=== PATIENT | female | born 1990 | race Caucasian/White ===

== ENCOUNTER 2016-07-15 13:31 | Emergency (ER) | payer OTHER ==
[~2016-07-15 13:31] MED LIST: ALBUTEROL0.09 MG/A2 IH; AMBIEN10 MG PO; ANAPROX DS550 MG PO; BACTRIM DS 8001 TA1 PO; BACTRIM DS 8001 TAB PO; BENTYL10 MG PO; BENTYL20 MG PO; CELEXA10 MG; CIPRO500 MG PO; CIPROFLOXACIN500 MG PO; CLINDAMYCIN HC300 MG PO; CORDROL20 MG PO; CYCLOBENZAPRINE5 M3 PO; DEPO MEDRO40 MG/1 ML IM; DIFLUCAN150 MG PO; FIORICET 325 MG1 TAB PO; FLAGYL500 MG PO; FLEXERIL10 MG PO; FLEXERIL5 MG PO; HYDROCODONE BIT1 T11 PO; KEFLEX500 MG PO; MACROBID100 M1 PO; MIRALAX POWDER17 G1 PO; MIRALAX17 GM/DOSE PO; MONISTAT 72% VG; MOTRIN800 MG PO; Motrin,Rufen800 MG PO; NAPROSYN500 MG PO; NKHM; NORCO 5-325 TA1 EACH PO; PEN-VEE K500 MG PO; PENICILLIN VK500 MG PO; PERCOCET 325 MG1 TA2 PO; PERCOCET 325 MG1 TA7 PO; PREDNISONE10 MG PO; PREDNISONE20 MG PO; PRENATAL1 TA1 PO; PRENATAL1 TA3 PO; PYRIDIUM100 MG PO; PYRIDIUM200 M1 PO; PYRIDIUM200 MG PO; Peridex 473 ML473 ML PO; ROBITUSSIN AC 110 ML PO; ROBITUSSIN-AC 160 ML PO; TESSALON PERLE100 M1 PO; TRAMADOL HCL50 MG PO; TRAMADOL50 MG PO; ULTRAM50 MG PO; VALIUM10 MG PO; VENTOLIN H0.09 MG/AC INH; VIBRA-TAB100 MG PO; VIBRAMYCIN100 MG PO; VICODIN 5/500 505 MG PO; VISTARIL25 M1 PO; VOLTAREN50 M1 PO; XANAX0.25 MG PO; ZANTAC150 MG PO; ZOFRAN ODT4 MG SL; ZOFRAN4 MG PO
[2016-07-15 14:29] LABS: BILIRUBIN NEGATIVE (NEGATIVE); BLOOD NEGATIVE (NEGATIVE); CLARITY CLOUDY (CLEAR); COLOR YELLOW (YELLOW); GLUCOSE NEGATIVE (NEGATIVE); KETONE NEGATIVE (NEGATIVE); LEUKO ESTERASE NEGATIVE (NEGATIVE); NITRITE NEGATIVE (NEGATIVE); PROTEIN TRACE (NEGATIVE); UROBILINOGEN 0.2 E.U./dl (0.2-1.0)
[2016-07-15] MEDS ORDERED: ZOFRAN ODT4 MG SL (14:29)
[2016-07-15 14:46] LABS: BACTERIA 2+; EPITHELIAL CELLS 51-100; URINE REFLEX COMMENT YES (NO)
[2016-07-30] MEDS ORDERED: PERCOCET 325 MG1 TA5 PO (08:31)
== END 2016-07-15 15:04 | disposition home or self-care (01) ==
LOC: ED 13:31
PROVIDERS: Nurse Practitioner Family
DX: N91.2 Amenorrhea, unspecified (principal); F17.200 Nicotine dependence, unspecified, uncomplicated; Z88.6 Allergy status to analgesic agent

== ENCOUNTER → 2016-07-30 | Day surgery (SDC) | payer OTHER ==
[2016-07-26 13:37] LABS: BASO # 0.1 10*3/uL (0.0-0.1); BASO % 0.6 % (0.0-1.0); EOS # 0.2 10*3/uL (0.0-0.4); EOS % 2.6 % (1.0-4.0); HEMATOCRIT 37.3 % (37.0-47.0); HEMOGLOBIN 12.2 g/dl (12.0-16.0); LYMPH # 2.6 10*3/uL (1.3-4.4); LYMPH % 31.4 % (27.0-41.0); MEAN CELL VOLUME 90.1 fl (81.0-99.0); MEAN CORPUSCULAR HGB 29.5 pg (27.0-31.0); MEAN CORPUSCULAR HGB CONC 32.7 g/dl (33.0-37.0); MEAN PLATELET VOLUME 8.4 fl (9.6-12.3); MONO # 0.5 10*3/uL (0.1-1.0); MONO % 5.8 % (3.0-9.0); NEUT # 4.8 10*3/uL (2.3-7.9); NEUT % 59.2 % (47.0-73.0); PLATELET COUNT AUTOMATED 407 10*3/uL (130-400); RED BLOOD COUNT 4.14 10*6/uL (4.10-5.10); RED CELL DISTRI WIDTH 13.7 % (0-14.5); WHITE BLOOD COUNT 8.1 10*3/uL (4.8-10.8)
[~2016-07-30] VITALS: Ht 149.8 cm; Wt 44.5 kg
[~2016-07-30] MED LIST changes: +BUSPIRONE HCL7.5 MG PO; +OMNICEF300 MG PO; +PERCOCET 325 MG1 TA5 PO
--- NOTE | ~2016-07-30 | WRIGHTHP ---
[place], [place] PATIENT HISTORY AND PHYSICAL EXAM NAME: SMITHA MUHAMMAD [facility] #: [id number] UNIT #: [id number] ROOM: DOCTOR: BJORN KELLER MD BIRTHDATE: [birth year] DOS: 08/02/2016 HISTORY OF PRESENT ILLNESS: This is a 26-year-old white female, 5, para 2, AB 3, whose last period was the very end of 06/2016, who was seen on 06/25/2016 with a very complex situation past medically. The patient had a diagnostic laparoscopy in 2014 and a thick anterior uterine body to anterior abdominal wall adhesion was noted from a previous section with non-closure of the peritoneum at the time of the section. The patient has also been diagnosed with interstitial cystitis, but has only had 2 rescues and has not returned for any additional therapy. We then performed a mini laparotomy to lyse this very thick adhesion in 04/2015 and the patient had done very well until 01/2016. She had some pain, but was overall doing reasonably well. She stated that she began having pain again in the left lower quadrant radiating to the midline and to the right lower quadrant in 04/2016. She has been using multiple therapies, especially tramadol and Percocet since August despite which she related above. Her last Emergency Room visit to [facility] was on 05/28/2016. At that time, her ultrasound was done that had been performed was normal. She was referred due to ovarian cysts and this pain. I showed her essentially the normal report from the ultrasound just so that, she would understand that what was said to her despite what was stated really was normal evaluation in May. We discussed his vague pain and the fact that I recommended that she complete her rescue series for IC and then all in all if all else fails, I could repeat the laparoscopy. I gave her some Uribel samples. We discussed the indications, potential complications, alternatives, and essential benefits of diagnostic laparoscopy again and she did state understanding and also desired to proceed with the laparoscopy. She discussed the narcotic prescription for this pain, but I advised her that since she had not treated her IC as indicated and because we did not know what the possible etiology of this pain was that I was not going to prescribe narcotics for this. The patient was not pleased with this, but did state understanding and she signed her consent, has been scheduled for this surgery. PAST HISTORY: Reveals a history of anxiety. The interstitial cystitis. There is intermittent pelvic pain. She has had wisdom teeth extraction, 2 C-sections in 2006 and 2010, the diagnostic laparoscopy, a mini laparotomy as I have described above. Again, 5 pregnancies, 2 living children and 3 miscarriages. She also has had stomach pains with a diagnosis of muscle spasms in 2010, stomach pain in 2011 and then more localized pelvic pain in 2014. SOCIAL HISTORY: She does smoke about a half pack per day, consumes alcohol, but prior history on a limited basis. MEDICATIONS: She uses Valium 10 mg up to 3 times a day for anxiety and Flexeril one tablet at bedtime for muscle spasms. ALLERGIES: ALLERGY TO TORADOL. She states it makes her heart race. REVIEW OF SYSTEMS: Other than what I mentioned is stable. FAMILY HISTORY: Really negative per the information provided to us in the [place], [place] PATIENT HISTORY AND PHYSICAL EXAM [facility]: [facility] [id number] UNIT #: [id number] ROOM: DOCTOR: BJORN KELLER MD BIRTHDATE: [birth year] office. PHYSICAL EXAMINATION: GENERAL: Reveals a pleasant, but somewhat depressed appearing white female, 4 feet 11, 98 pounds, BMI of 19.8 and she does appear like she is uncomfortable. HEENT: Stable. NECK: Stable. LUNGS: Stable. CARDIAC: Stable. BREAST: Stable. ABDOMEN: Nondistended. Bowel sounds are good and operative sites are all intact. There is no evidence of any hernia formation. Deep palpation does not really elicit any significant abdominal pain. There is no rebound. EXTREMITIES: Grossly intact. NEUROLOGIC: Grossly intact. GENITOURINARY: External genitalia, vagina, cervix normal. Most recent Pap was negative in 2014. Uterus itself is anteverted and anteflexed, somewhat tender on manipulation. The overall size is normal and the mobility is good. Adnexa were negative to palpation. RECTAL: Deferred. ASSESSMENT: The patient with interstitial cystitis that has not been properly treated and the patient is not been cooperative in this respect, chronic intermittent pelvic pain with a history previously of significant thick anterior uterine to abdominal wall adhesion that was lysed via minilaparotomy. Interceed was used and all steps were taken try to prevent recurrence of this now recurrent pelvic pain after a good response to lysis of this adhesion, but the etiology of the pain at present is uncertain. To that end, on 07/30/2016, the patient will undergo a diagnostic laparoscopy. BJORN KELLER MD CM:HISPHYS:PATIENT HISTORY AND PHYSICAL EXAMINATION [id number] BJORN KELLER MD 08/07/16 0718 interface
--- NOTE | ~2016-07-30 | O ---
[place], [place] OPERATIVE NOTE NAME: SMITHA MUHAMMAD [facility] #: [id number] UNIT #: [id number] ROOM: DOCTOR: BJORN KELLER MD BIRTHDATE: [birth year] DOS: 07/30/2016 PREOPERATIVE DIAGNOSES: Recurrent pelvic pain. POSTOPERATIVE DIAGNOSIS: Recurrent pelvic pain with the addition of recurrent thick anterior abdominal wall to uterine adhesion arising from the left cornual region of the uterus, this is chronic and not acute. PROCEDURE: The operation itself was a diagnostic laparoscopy. SURGEON: Bjorn Keller M.D. and Dr. Briceño. ANESTHETIC: General. ESTIMATED BLOOD LOSS: Minimal. REPLACEMENTS: IV fluids. COMPLICATIONS: There were no complications. CONDITION: The patient's condition to recovery stable. OPERATIVE SUMMARY: The patient was taken to the operating room in supine position, general anesthesia, endotracheal intubation, lithotomy position, prepped and draped in routine manner. Cervix was grasped with tenaculum and a cervical manipulator placed and a Fountain catheter was placed to straight drain. Infraumbilical and suprapubic incisions were made under direct visualization. Through the infraumbilical incision, a 5-mm trocar sleeve and laparoscope placed. Suprapubic trocar and sleeves were then placed well above the pubic bone and above her previous Pfannenstiel incisions. A probe was placed, and at this time, the anterior cul-de-sac and the posterior cul-de-sac were normal. The supporting structures were normal. The tubes and ovaries were normal with the left tube being somewhat prominent, but otherwise being normal with no evidence of any inflammation. The ovaries were upper limits of normal size, left being greater than right, but overall normal in their appearance. There was a thick recurrent anterior abdominal wall adhesion between the uterus and the abdominal wall arising near the left cornual region. The exam of the appendix, the upper abdomen, the ascending and descending colon, the bowel small and large in general were all completely within normal limits. The only abnormality really was this recurrent thick adhesion arising near the left cornual region of the uterus to the abdominal wall. This was rather far reaching and extensive, and it was not felt to be laparoscopically the best approach to dealing with this particularly since it was recurrent. Once this was completed, the survey and photos taken, the suprapubic trocar and sleeve and probe were removed and noting no excessive anterior abdominal wall bleeding. CO2 was allowed to escape followed by removal of the infraumbilical trocar, sleeve, and laparoscope. Each incision was closed with 3-0 Monocryl suture. Steri-Strips and dressings placed. Instrumentation was removed from the vagina and noting no excessive vaginal bleeding. We removed the Fountain catheter, which had revealed approximately 100 mL of clear urine. Once this was all completed, [place], [place] OPERATIVE NOTE NAME: SMITHA MUHAMMAD UNIT #: [id number] ROOM: DOCTOR: BJORN KELLER MD BIRTHDATE: [birth year] the patient was cleaned off, taken out of lithotomy position, awakened, extubated, and transferred to recovery in satisfactory condition. BJORN KELLER MD CM:OPRECORD:OPERATIVE NOTE [id number] BJORN KELLER MD 07/30/16 0858 interface
[2016-07-30 07:10] VITALS: BP 123/80
[2016-07-30 08:20] VITALS: BP 113/73
[2016-07-30 08:35] VITALS: BP 101/65
[2016-07-30 08:50] VITALS: BP 103/65
[2016-07-30 09:04] VITALS: BP 102/64
[2016-07-30 09:23] VITALS: BP 101/64
== END | disposition home or self-care (01) ==
LOC: SDC 07-26 01:34 → LAB 01:58 → SDC 01:58
PROVIDERS: Obstetrics & Gynecology
DX: R10.2 Pelvic and perineal pain (principal); N73.6 Female pelvic peritoneal adhesions (postinfective); F41.9 Anxiety disorder, unspecified; F17.210 Nicotine dependence, cigarettes, uncomplicated

== ENCOUNTER 2016-08-12 20:45 | Emergency (ER) | payer OTHER ==
[~2016-08-12] VITALS: Ht 149.8 cm; Wt 44.5 kg
[~2016-08-12 20:45] MED LIST changes: -BUSPIRONE HCL7.5 MG PO; -OMNICEF300 MG PO
[2016-08-12] MEDS ORDERED: BUSPIRONE HCL7.5 MG PO (20:53)
[2016-08-12 21:18] LABS: BILIRUBIN NEGATIVE (NEGATIVE); BLOOD 1+ (NEGATIVE); CLARITY SL CLOUDY (CLEAR); COLOR YELLOW (YELLOW); GLUCOSE NEGATIVE (NEGATIVE); KETONE TRACE (NEGATIVE); LEUKO ESTERASE 2+ (NEGATIVE); NITRITE NEGATIVE (NEGATIVE); PROTEIN NEGATIVE (NEGATIVE); SPECIFIC GRAVITY >= 1.030 (1.005-1.030); UROBILINOGEN 0.2 E.U./dl (0.2-1.0)
[2016-08-12] MEDS ORDERED: PRENATAL1 TA3 PO (21:18)
[2016-08-12 21:33] LABS: BACTERIA 1+; EPITHELIAL CELLS TNTC; URINE REFLEX COMMENT YES (NO); WBC TNTC wbc/hpf (0-5)
[2016-08-12] MEDS ORDERED: OMNICEF300 MG PO (21:35)
== END 2016-08-12 21:42 | disposition home or self-care (01) ==
LOC: ED 20:45
PROVIDERS: Physician Assistant
DX: T23.131A Burn of first degree of multiple right fingers (nail), not including thumb, initial encounter (principal); N30.01 Acute cystitis with hematuria; F17.200 Nicotine dependence, unspecified, uncomplicated; Z98.890 Other specified postprocedural states; Z32.01 Encounter for pregnancy test, result positive; Z88.6 Allergy status to analgesic agent; X08.8XXA Exposure to other specified smoke, fire and flames, initial encounter; Y93.89 Activity, other specified; Y92.89 Other specified places as the place of occurrence of the external cause; Y99.9 Unspecified external cause status

== ENCOUNTER → 2016-12-04 | Outpatient (CLI) | payer OTHER ==
[~2016-12-04] MED LIST changes: +BUSPIRONE HCL7.5 MG PO; +OMNICEF300 MG PO
== END | disposition home or self-care (01) ==
LOC: US 17:00
DX: Z34.81 Encounter for supervision of other normal pregnancy, first trimester (principal); K21.0 Gastro-esophageal reflux disease with esophagitis; R11.0 Nausea

== ENCOUNTER → 2017-02-19 | Outpatient (CLI) | payer OTHER | LOC: LAB 07:55 | DX: R73.09 Other abnormal glucose (principal) ==

== ENCOUNTER 2017-02-24 13:44 | Emergency (ER) | payer OTHER ==
[~2017-02-24] VITALS: Ht 149.8 cm; Wt 54.4 kg
[2017-02-24 14:22] LABS: HEMATOCRIT 31.6 % (37.0-47.0); HEMOGLOBIN 10.7 g/dl (12.0-16.0); MEAN CELL VOLUME 91.9 fl (81.0-99.0); MEAN CORPUSCULAR HGB 31.1 pg (27.0-31.0); MEAN CORPUSCULAR HGB CONC 33.9 g/dl (33.0-37.0); MEAN PLATELET VOLUME 8.8 fl (9.6-12.3); PLATELET COUNT AUTOMATED 308 10*3/uL (130-400); RED BLOOD COUNT 3.44 10*6/uL (4.10-5.10); RED CELL DISTRI WIDTH 12.3 % (0-14.5); WHITE BLOOD COUNT 17.9 10*3/uL (4.8-10.8)
[2017-02-24 14:36] LABS: BILIRUBIN NEGATIVE (NEGATIVE); BLOOD 3+ (NEGATIVE); CLARITY SL CLOUDY (CLEAR); COLOR YELLOW (YELLOW); GLUCOSE NEGATIVE (NEGATIVE); KETONE NEGATIVE (NEGATIVE); LEUKO ESTERASE NEGATIVE (NEGATIVE); NITRITE NEGATIVE (NEGATIVE); PROTEIN NEGATIVE (NEGATIVE); UROBILINOGEN 0.2 E.U./dl (0.2-1.0)
[2017-02-24 14:39] LABS: ALBUMIN 3.1 gm/dl (3.1-4.5); ALKALINE PHOSPHATASE 120 U/L (45-117); BILIRUBIN, TOTAL 0.3 mg/dl (0.2-1.0); BUN 4 mg/dl (7-24); CARBON DIOXIDE 23 mmol/L (21-32); CHLORIDE 104 mmol/L (98-107); EST GLOM FILT AFRICAN AMERICAN > 60 ml/min; GLUCOSE 79 mg/dL (65-99); POTASSIUM 3.3 mmol/L (3.5-5.1); SGOT/AST 13 IU/L (3-35); SGPT/ALT 12 U/L (12-78); SODIUM 138 mmol/L (136-145); TOTAL PROTEIN 6.8 gm/dL (6.4-8.2)
[2017-02-24 14:41] LABS: EOSINOPHIL # 0.4 10*3/uL (0-0.4); EOSINOPHILS 2 % (1-4); LYMPHOCYTE # 2.1 10*3/uL (1.3-4.4); METAMYELOCYTES 2 % (0-0); MONOCYTE # 0.7 10*3/uL (0.1-1.0); MYELOCYTES 1 % (0-0); NEUTROPHIL # 14.1 10*3/uL (2.3-7.9); NEUTROPHILS 79 % (47-73); TOTAL CELLS COUNTED 100 #CELLS
[2017-02-24 14:42] LABS: PLATELET SUFFICIENCY NORMAL (NORMAL)
[2017-02-24 15:00] LABS: BACTERIA TRACE; EPITHELIAL CELLS TNTC; URINE REFLEX COMMENT YES (NO)
== END 2017-02-24 15:19 | disposition home or self-care (01) ==
LOC: ED 13:44
PROVIDERS: Student in an Organized Health Care Education/Training Program
DX: O26.893 Other specified pregnancy related conditions, third trimester (principal); O99.333 Smoking (tobacco) complicating pregnancy, third trimester; M54.5 Low back pain; N89.8 Other specified noninflammatory disorders of vagina; F17.200 Nicotine dependence, unspecified, uncomplicated; Z88.6 Allergy status to analgesic agent; Z3A.31 31 weeks gestation of pregnancy

== ENCOUNTER 2017-07-22 13:29 | Emergency (ER) | payer OTHER ==
[~2017-07-22] VITALS: Ht 149.8 cm; Wt 45.4 kg
[2017-07-22 14:52] LABS: BASO % 0.5 % (0.0-1.0); EOS # 0.2 10*3/uL (0.0-0.4); EOS % 2.9 % (1.0-4.0); HEMOGLOBIN 13.2 g/dl (12.0-16.0); LYMPH # 2.3 10*3/uL (1.3-4.4); MEAN CELL VOLUME 86.7 fl (81.0-99.0); MEAN CORPUSCULAR HGB 27.9 pg (27.0-31.0); MEAN CORPUSCULAR HGB CONC 32.2 g/dl (33.0-37.0); MEAN PLATELET VOLUME 8.5 fl (9.6-12.3); MONO # 0.5 10*3/uL (0.1-1.0); MONO % 5.8 % (3.0-9.0); NEUT # 4.7 10*3/uL (2.3-7.9); NEUT % 60.4 % (47.0-73.0); PLATELET COUNT AUTOMATED 423 10*3/uL (130-400); RED BLOOD COUNT 4.73 10*6/uL (4.10-5.10); RED CELL DISTRI WIDTH 14.9 % (0-14.5); WHITE BLOOD COUNT 7.8 10*3/uL (4.8-10.8)
[2017-07-22 14:56] LABS: BILIRUBIN NEGATIVE (NEGATIVE); BLOOD 3+ (NEGATIVE); CLARITY CLOUDY (CLEAR); COLOR YELLOW (YELLOW); GLUCOSE NEGATIVE (NEGATIVE); KETONE NEGATIVE (NEGATIVE); LEUKO ESTERASE 1+ (NEGATIVE); NITRITE NEGATIVE (NEGATIVE); PH 6.5 (5.0-9.0); SPECIFIC GRAVITY 1.015 (1.005-1.030); UROBILINOGEN 0.2 E.U./dl (0.2-1.0)
[2017-07-22 15:03] LABS: ALBUMIN 3.6 gm/dl (3.1-4.5); ALKALINE PHOSPHATASE 119 U/L (45-117); BUN 7 mg/dl (7-24); CHLORIDE 108 mmol/L (98-107); CREATININE 0.65 mg/dL (0.55-1.02); LIPASE 136 U/L (73-393); POTASSIUM 3.9 mmol/L (3.5-5.1); SGOT/AST 13 IU/L (3-35); SGPT/ALT 27 U/L (12-78); SODIUM 141 mmol/L (136-145); TOTAL PROTEIN 7.3 gm/dL (6.4-8.2)
[2017-07-22 15:12] LABS: RBC TNTC rbc/hpf (0-2)
[2017-07-22] MEDS ORDERED: ZOFRAN4 MG PO (15:26)
[2017-07-22] MEDS ORDERED: PYRIDIUM200 M1 PO (15:26)
[2017-07-22] MEDS ORDERED: SEPTDS PO (15:26)
== END 2017-07-22 15:30 | disposition home or self-care (01) ==
LOC: ED 13:29
PROVIDERS: Nurse Practitioner Family
DX: N39.0 Urinary tract infection, site not specified (principal); F17.200 Nicotine dependence, unspecified, uncomplicated; G89.29 Other chronic pain; Z88.6 Allergy status to analgesic agent; Z79.899 Other long term (current) drug therapy

== ENCOUNTER 2017-08-25 17:31 | Emergency (ER) | payer SELFPAY ==
[~2017-08-25] VITALS: Wt 52.6 kg
[~2017-08-25 17:31] MED LIST changes: +SEPTDS PO
[2017-08-25] MEDS ORDERED: PRAZOSIN HCL1 MG PO (17:39)
[2017-08-25] MEDS ORDERED: SERTRALINE HYD100 MG PO (17:40)
[2017-08-25] MEDS ORDERED: DOXEPIN HCL25 MG PO (17:40)
[2017-08-25] MEDS ORDERED: DIAZEPAM5 MG PO (17:40)
[2017-08-25] MEDS ORDERED: ZITHROMAX250 MG PO (18:46)
[2017-08-25] MEDS ORDERED: PREDNISONE10 MG PO (20:09)
== END 2017-08-25 20:20 | disposition home or self-care (01) ==
LOC: ED 17:31
DX: L24.9 Irritant contact dermatitis, unspecified cause (principal); H66.90 Otitis media, unspecified, unspecified ear; J02.9 Acute pharyngitis, unspecified; F17.200 Nicotine dependence, unspecified, uncomplicated; Z88.6 Allergy status to analgesic agent

== ENCOUNTER 2018-04-05 14:23 | Emergency (ER) | payer OTHER ==
[~2018-04-05] VITALS: Ht 149.8 cm; Wt 50.3 kg
[~2018-04-05 14:23] MED LIST changes: +DIAZEPAM5 MG PO; +DOXEPIN HCL25 MG PO; +PRAZOSIN HCL1 MG PO; +SERTRALINE HYD100 MG PO; +ZITHROMAX250 MG PO
[2018-04-05] MEDS ORDERED: ROBITUSSIN DM 105 ML PO (17:22)
[2018-04-05] MEDS ORDERED: AMOXICILLIN500 M2 PO (17:22)
[2018-04-05] MEDS ORDERED: PREDNISONE20 M1 PO (17:22)
[2018-04-05] MEDS ORDERED: PROAIR HFA8.5 GM INH (17:22)
== END 2018-04-05 17:27 | disposition home or self-care (01) ==
LOC: ED 14:23
DX: J20.9 Acute bronchitis, unspecified (principal); F17.200 Nicotine dependence, unspecified, uncomplicated; Z88.6 Allergy status to analgesic agent

== ENCOUNTER 2018-08-19 19:43 | Emergency (ER) | payer OTHER ==
[~2018-08-19] VITALS: Ht 149.8 cm; Wt 54.4 kg
[~2018-08-19 19:43] MED LIST changes: +AMOXICILLIN500 M2 PO; +PREDNISONE20 M1 PO; +PROAIR HFA8.5 GM INH; +ROBITUSSIN DM 105 ML PO
[2018-08-19] MEDS ORDERED: AMOXICILLIN500 M2 PO (20:19)
== END 2018-08-19 20:35 | disposition home or self-care (01) ==
LOC: ED 19:43
DX: J02.0 Streptococcal pharyngitis (principal); Z88.6 Allergy status to analgesic agent; Z79.2 Long term (current) use of antibiotics; Z79.899 Other long term (current) drug therapy

== ENCOUNTER → 2019-05-18 | Outpatient (CLI) | payer OTHER ==
[2019-05-18 17:17] LABS: BILIRUBIN NEGATIVE (NEGATIVE); BLOOD NEGATIVE (NEGATIVE); CLARITY CLEAR (CLEAR); COLOR YELLOW (YELLOW); GLUCOSE NEGATIVE (NEGATIVE); KETONE NEGATIVE (NEGATIVE); LEUKO ESTERASE TRACE (NEGATIVE); NITRITE NEGATIVE (NEGATIVE); PH 7.5 (5.0-9.0); UROBILINOGEN 0.2 E.U./dl (0.2-1.0)
[2019-05-18 17:34] LABS: BACTERIA TRACE
== END | disposition home or self-care (01) ==
LOC: LAB 16:35
PROVIDERS: Obstetrics & Gynecology
DX: R10.2 Pelvic and perineal pain (principal)

== ENCOUNTER 2019-07-26 21:31 | Inpatient (IN) | payer OTHER ==
[~2019-07-26] VITALS: Ht 149.8 cm; Wt 47.7 kg
[2019-07-26 21:37] VITALS: BP 126/88
[2019-07-26] MEDS ORDERED: PERCOCET 5-3251 EACH PO (21:39)
[2019-07-26 22:16] LABS: BASO # 0.1 10*3/uL (0.0-0.1); BASO % 0.6 % (0.0-1.0); EOS # 0.6 10*3/uL (0.0-0.4); EOS % 4.6 % (1.0-4.0); HEMATOCRIT 42.5 % (37.0-47.0); HEMOGLOBIN 14.3 g/dl (12.0-16.0); LYMPH % 23.5 % (27.0-41.0); MEAN CELL VOLUME 92.6 fl (81.0-99.0); MEAN CORPUSCULAR HGB 31.2 pg (27.0-31.0); MEAN CORPUSCULAR HGB CONC 33.6 g/dl (33.0-37.0); MEAN PLATELET VOLUME 8.4 fl (9.6-12.3); MONO # 0.6 10*3/uL (0.1-1.0); MONO % 4.6 % (3.0-9.0); NEUT # 8.6 10*3/uL (2.3-7.9); NEUT % 66.3 % (47.0-73.0); PLATELET COUNT AUTOMATED 466 10*3/uL (130-400); RED BLOOD COUNT 4.59 10*6/uL (4.10-5.10); RED CELL DISTRI WIDTH 12.6 % (0-14.5); WHITE BLOOD COUNT 12.9 10*3/uL (4.8-10.8)
[2019-07-26 22:32] LABS: ALBUMIN 3.8 gm/dl (3.1-4.5); ALKALINE PHOSPHATASE 102 U/L (45-117); BUN 12 mg/dl (7-24); CHLORIDE 107 mmol/L (98-107); CREATININE 0.71 mg/dL (0.55-1.02); LIPASE 66 U/L (73-393); POTASSIUM 3.6 mmol/L (3.5-5.1); SGOT/AST 11 IU/L (3-35); SGPT/ALT 15 U/L (12-78); SODIUM 138 mmol/L (136-145); TOTAL PROTEIN 7.3 gm/dL (6.4-8.2)
[2019-07-26 22:52] LABS: BILIRUBIN NEGATIVE (NEGATIVE); BLOOD NEGATIVE (NEGATIVE); CLARITY SL CLOUDY (CLEAR); COLOR YELLOW (YELLOW); GLUCOSE NEGATIVE (NEGATIVE); KETONE NEGATIVE (NEGATIVE); LEUKO ESTERASE NEGATIVE (NEGATIVE); NITRITE NEGATIVE (NEGATIVE); PH 5.5 (5.0-9.0); SPECIFIC GRAVITY >= 1.030 (1.005-1.030); UROBILINOGEN 0.2 E.U./dl (0.2-1.0)
[2019-07-26 23:19] LABS: EPITHELIAL CELLS 45-50
--- NOTE | 2019-07-27 01:15 | NUR ---
PER , DRAW BLOOD CULTURES PRIOR TO GIVING IV ABX. THIS RN ATTEMPTED TO CALL PLUG MACHINE OPERATOR, PT HAS NOT COME UP TO FLOOR YET. WILL TRY TO REACH PLUG MACHINE OPERATOR AGAIN.
--- NOTE | 2019-07-27 01:43 | NUR ---
ABDOMINAL PAIN UNRELIEVED BY DILAUDID, SPO2 98% ON RROM AIR AT THIS TIME.
[2019-07-27 02:25] VITALS: BP 118/80
--- NOTE | 2019-07-27 02:25 | NUR ---
Time: 224 A 29 year old FEMALE admitted to 5E under services of SARAH LINO DO Pt. arrived via wheel chair from ER. Chief complaint: ABDOMINAL PAIN. DX: COLITIS. MANUELA RAMSEY
[2019-07-27] MEDS ORDERED: IBUPROFEN600 MG PO (02:37)
--- NOTE | 2019-07-27 02:37 | NUR ---
PT MED REC UP TO DATE PER PT RECALL.
--- NOTE | 2019-07-27 03:36 | NUR ---
PO NORCO ADMINISTERED PER PRN ORDER FOR C/O ABD PAIN RATED 7/10. WILL MONITOR EFFECTIVENESS. CALL LIGHT IN REACH.
--- NOTE | 2019-07-27 05:53 | NUR ---
IV MORPHINE ADMINISTERED SLOWLY PER PRN ORDER FOR C/O PAIN IN ABDOMEN RATED 6/10. WILL MONITOR. CALL LIGHT IN REACH.
--- NOTE | 2019-07-27 06:00 | NUR ---
Time: 224 A 29 year old FEMALE admitted to 5E under services of YOHAN LINO DO. Pt. arrived via wheel chair from ER. Chief complaint: ABDOMINAL PAIN. DX: COLITIS. MANUELA RAMSEY
--- NOTE | 2019-07-27 06:32 | NUR ---
EARLIER MEDICATION APPEARS EFFECTIVE. PT ASLEEP IN BED. RESPIRATIONS EASY. NO S/S OF DISTRESS NOTED.
[2019-07-27 06:47] LABS: BASO # 0.1 10*3/uL (0.0-0.1); BASO % 0.7 % (0.0-1.0); EOS # 0.7 10*3/uL (0.0-0.4); EOS % 5.6 % (1.0-4.0); HEMATOCRIT 35.7 % (37.0-47.0); HEMOGLOBIN 11.7 g/dl (12.0-16.0); LYMPH # 3.6 10*3/uL (1.3-4.4); LYMPH % 28.5 % (27.0-41.0); MEAN CELL VOLUME 94.2 fl (81.0-99.0); MEAN CORPUSCULAR HGB 30.9 pg (27.0-31.0); MEAN CORPUSCULAR HGB CONC 32.8 g/dl (33.0-37.0); MEAN PLATELET VOLUME 8.5 fl (9.6-12.3); MONO # 0.7 10*3/uL (0.1-1.0); MONO % 5.4 % (3.0-9.0); NEUT # 7.5 10*3/uL (2.3-7.9); NEUT % 59.5 % (47.0-73.0); PLATELET COUNT AUTOMATED 392 10*3/uL (130-400); RED BLOOD COUNT 3.79 10*6/uL (4.10-5.10); RED CELL DISTRI WIDTH 12.6 % (0-14.5); WHITE BLOOD COUNT 12.7 10*3/uL (4.8-10.8)
[2019-07-27 07:02] LABS: ALBUMIN 2.8 gm/dl (3.1-4.5); ALKALINE PHOSPHATASE 78 U/L (45-117); BUN 10 mg/dl (7-24); CHLORIDE 114 mmol/L (98-107); CREATININE 0.59 mg/dL (0.55-1.02); PHOSPHOROUS 3.9 mg/dL (2.5-4.9); POTASSIUM 3.5 mmol/L (3.5-5.1); SGOT/AST 9 IU/L (3-35); SGPT/ALT 12 U/L (12-78); SODIUM 143 mmol/L (136-145); TOTAL PROTEIN 5.6 gm/dL (6.4-8.2)
[2019-07-27 08:00] VITALS: BP 107/52
--- NOTE | 2019-07-27 08:35 | NUR ---
PT REQUESTED AND WAS MEDICATED WITH NORCO FOR C/O 510 ABDOMINAL PAIN. CALL LIGHT IN REACH. WILL MONITOR
--- NOTE | 2019-07-27 09:04 | NUR ---
SMITHA MUHAMMAD [id number] Please refer to the physician's history and physical for past medical history, comorbid conditions, and allergies. Diagnosis: COLITIS Sander Score: 21,AT RISK WOUND DESCRIPTIONS: PATIENT'S RLQ, UMBILICUS, LLQ, LUQ HAS INTACT STERI STRIPS AND TEGADERM. PATIENT STATES THAT SHE HAD SURGERY ON 07-21-19. NO DRAINAGE NOTED AT TIME OF ASSESSMENT. PATIENT STATES AREAS ARE TENDER TO TOUCH. Surface the patient is resting on: Isoflex SKIN PREVENTION RECOMMENDATION: 1. Pressure redistribution support surface as appropriate 2. Elevate heels 3. Remove boots/TEDS every shift and reapply 4. Head of bed 30 degrees as tolerated 5. Assess nutrition and hydration 6. Manage moisture 7. Avoid the use of containment devices while in bed 8. Use absorptive products on surfaces limit layers of linens on bed 9. Turn and reposition every 1-2 hours in bed and every 1 hour in chair as tolerated 10. Weight shifts every 15 minutes while up in chair 11. Offloading with pillows or device to keep heels elevated off bed 12. Monitor skin at least every shift 13. Inspect under medical devices twice a day WOUND TREATMENT RECOMMENDATIONS: KEEP STERI STRIPS AND TEGADREM INTACT. PATIENT IS TO FOLLOW UP WITH SURGEON 08-04-19 FOR POST OP APPOINTMENT.
--- NOTE | 2019-07-27 10:28 | NUR ---
Dr. Keen notified of wound care recommendations.
--- NOTE | 2019-07-27 11:09 | NUR ---
DR CISSE CALLED AND NOTIFIED OF CONSULT
[2019-07-27 12:00] VITALS: BP 97/60
[2019-07-27 16:00] VITALS: BP 102/63
[2019-07-27 20:00] VITALS: BP 99/68
--- NOTE | 2019-07-27 22:00 | NUR ---
PATIENT MEDICATED WITH MORPHINE FOR C/O 6/10 ABDOMEN PAIN/DISCOMFORT. WILL MONITOR
--- NOTE | 2019-07-27 23:00 | NUR ---
MORPHINE EFFECTIVE FOR PAIN
[2019-07-28] VITALS: BP 101/56
--- NOTE | 2019-07-28 03:48 | NUR ---
PATIENT MEDICATED WITH MORPHINE FOR C/O 6/10 ABDOMEN PAIN. WILL MONITOR
--- NOTE | 2019-07-28 04:48 | NUR ---
MORPHINE EEFECTIVE FOR PAIN
[2019-07-28 06:34] LABS: BASO # 0.1 10*3/uL (0.0-0.1); BASO % 0.9 % (0.0-1.0); EOS # 0.7 10*3/uL (0.0-0.4); EOS % 8.4 % (1.0-4.0); HEMATOCRIT 38.7 % (37.0-47.0); HEMOGLOBIN 12.6 g/dl (12.0-16.0); LYMPH # 3.3 10*3/uL (1.3-4.4); LYMPH % 39.9 % (27.0-41.0); MEAN CELL VOLUME 95.6 fl (81.0-99.0); MEAN CORPUSCULAR HGB 31.1 pg (27.0-31.0); MEAN CORPUSCULAR HGB CONC 32.6 g/dl (33.0-37.0); MEAN PLATELET VOLUME 8.5 fl (9.6-12.3); MONO # 0.5 10*3/uL (0.1-1.0); MONO % 5.8 % (3.0-9.0); NEUT # 3.6 10*3/uL (2.3-7.9); NEUT % 44.4 % (47.0-73.0); PLATELET COUNT AUTOMATED 401 10*3/uL (130-400); RED BLOOD COUNT 4.05 10*6/uL (4.10-5.10); RED CELL DISTRI WIDTH 12.7 % (0-14.5); WHITE BLOOD COUNT 8.2 10*3/uL (4.8-10.8)
[2019-07-28 08:00] VITALS: BP 104/68
--- NOTE | 2019-07-28 08:26 | NUR ---
Dr. Keen notified of wound care recommendations.
--- NOTE | 2019-07-28 09:00 | NUR ---
Advertising Strategist in to talk to patient. Patient states lives at home with boyfriend and children. There are few steps in the home. Physician: none [facility]acy[facility] Home health services: none Patient's level of ADLs: INDEPENDENT Patient has working utilities: all working DME: none Follow-up physician's appointment after d/c: will be made by hospitalist nurse director upon discharge Does patient want to access PORTAL?: no Discharge plan discussed with patient, she lives at home with family, she is independent in adls and ambulation, she states she will return home when medically stable and denies any home needs. ERLIN JANE
--- NOTE | 2019-07-28 11:15 | NUR ---
DR CISSE CALLED AND NOTIFIED OF KUB RESULTS. NO NEW ORDERS.
[2019-07-28 12:00] VITALS: BP 110/63
[2019-07-28 16:00] VITALS: BP 124/71
--- NOTE | 2019-07-28 16:00 | NUR ---
PT CALLED THIS NURSE IN THE ROOM AND STATED SHE HAD A LARGE DIARRHEA BOWEL MOVEMENT AND THAT IT WAS PAINFUL. SHE DENIES ANY BLOOD AND STATED IT WAS BROWN IN COLOR.
[2019-07-28 20:00] VITALS: BP 104/66
--- NOTE | 2019-07-28 20:44 | NUR ---
PATIENT MEDICATED WITH MORPHINE FOR COMPLAINTS OF ABDOMINAL PAIN. RATES 01/21. STATES SHE FEELS LIKE HER STOMACH IS ON FIRE. PATIENT VOICES NO OTHER COMPLAINTS AT THIS TIME. WILL CONTINUE TO MONITOR.
--- NOTE | 2019-07-28 23:07 | NUR ---
PATIENT MEDICATED WITH SCHEDULED DOSE OF PERCOCET. RATES PAIN 6/10. WILL CHECK EFFECTIVENESS.
[2019-07-29] VITALS: BP 109/59
--- NOTE | 2019-07-29 01:40 | NUR ---
PATIENT MEDICATED WITH MORPHINE FOR COMPLAINTS OF ABDOMINAL PAIN. RATES 12/22. ALSO MEDICATED WITH RESTORIL. PATIENT STATES SHE IS HAVING TROUBLE SLEEPING. WILL CHECK EFFECTIVENESS.
--- NOTE | 2019-07-29 03:48 | NUR ---
PATIENT SLEEPING. RESTORIL AND MORPHINE EFFECTIVE. WILL CONTINUE TO MONITOR.
--- NOTE | 2019-07-29 05:26 | NUR ---
PATIENT MEDICATED WITH SCHEDULED PERCOCET. RATES PAIN 03/24. WILL CHECK EFFECTIVENESS.
--- NOTE | 2019-07-29 06:00 | NUR ---
PATIENT ALREADY ENGINEERING GROUP LEADER LIGHT REQUESTING MORPHINE. ENCOURAGED PATIENT TO GIVE THE PERCOCET TIME TO WORK.
--- NOTE | 2019-07-29 07:38 | NUR ---
PATIENT MEDICATED WITH IVP MORPHINE FOR PAIN IN HER ABDOMEN RATED 6/10. PATIENT STATES ITS THE WORST JUST AFTER HAVING A BOWEL MOVEMENT.
[2019-07-29 08:00] VITALS: BP 100/64
--- NOTE | 2019-07-29 09:00 | NUR ---
case management visits with patient, she will return home when medically stable and denies any home needs
--- NOTE | 2019-07-29 09:00 | NUR ---
Patient resting. Pt states medication effective. Respirations easy and regular. Vital signs stable. No overt distress. MARIXA YOUSSEF R
[2019-07-29] MEDS ORDERED: VITAMIN D32000 UNI1 PO (11:16)
[2019-07-29] MEDS ORDERED: CIPRO500 MG PO (11:17)
[2019-07-29] MEDS ORDERED: FLAGYL500 MG PO (11:17)
--- NOTE | 2019-07-29 11:20 | NUR ---
Nutritional Support Services Note: Pt has surgical incision s/p hysterectomy. Appetite is good for meals. Diet just advanced to regular. Encouraged healthy eating and adequate protein and calories to promote healing. No other questions or concerns at this time. Will follow as needed. No other nutrition intervention needed. Kari Motley Rdn Ld
[2019-07-29 12:00] VITALS: BP 102/66
--- NOTE | 2019-07-29 12:13 | NUR ---
Discharge instructions reviewed with patient/family. Patient receptive and verbalizes understanding. Follow-up care arranged. Written instructions given to patient/family. MARIXA YOUSSEF
== END 2019-07-29 12:13 | disposition home or self-care (01) | DRG 720 ==
LOC: ED 21:31 → EDHOLD 07-27 00:39 → 5E 07-27 00:39
PROVIDERS: Emergency Medicine; Student in an Organized Health Care Education/Training Program; ADMIT Emergency Medicine
DX: A41.9 Sepsis, unspecified organism (principal); E43 Unspecified severe protein-calorie malnutrition; K52.9 Noninfective gastroenteritis and colitis, unspecified; E87.8 Other disorders of electrolyte and fluid balance, not elsewhere classified; F17.210 Nicotine dependence, cigarettes, uncomplicated; R73.9 Hyperglycemia, unspecified; E55.9 Vitamin D deficiency, unspecified; D64.9 Anemia, unspecified; M25.519 Pain in unspecified shoulder; F17.200 Nicotine dependence, unspecified, uncomplicated; G89.29 Other chronic pain; K08.89 Other specified disorders of teeth and supporting structures; Z90.710 Acquired absence of both cervix and uterus; Z68.21 Body mass index [BMI] 21.0-21.9, adult; Z88.8 Allergy status to other drugs, medicaments and biological substances; Z79.899 Other long term (current) drug therapy

== ENCOUNTER → 2020-06-19 | Outpatient (CLI) | payer OTHER ==
[~2020-06-19] MED LIST changes: +IBUPROFEN600 MG PO; +PERCOCET 5-3251 EACH PO; +VITAMIN D32000 UNI1 PO
== END | disposition home or self-care (01) ==
LOC: COVID19 16:00
PROVIDERS: ATTEND Hospitalist
DX: Z20.828 Contact with and (suspected) exposure to other viral communicable diseases (principal)

== ENCOUNTER 2020-09-04 19:46 | Emergency (ER) | payer OTHER ==
[~2020-09-04] VITALS: Ht 149.8 cm; Wt 45.4 kg
[2020-09-04 20:16] LABS: BILIRUBIN 1+ (Negative); BLOOD Negative (Negative); CLARITY Cloudy (Clear); GLUCOSE Negative (Negative); KETONE Negative (Negative); LEUKO ESTERASE 1+ (Negative); NITRITE Positive (Negative); SPECIFIC GRAVITY 1.015 (1.001-1.030)
[2020-09-04 20:23] LABS: COLOR Orange (Yellow)
[2020-09-04 20:41] LABS: BACTERIA 1+; EPITHELIAL CELLS 41-50; RBC 0-2 rbc/hpf (0-2)
[2020-09-04] MEDS ORDERED: CIPRO500 MG PO (20:50)
== END 2020-09-04 20:52 | disposition home or self-care (01) ==
LOC: ED 19:46
PROVIDERS: Internal Medicine
DX: N39.0 Urinary tract infection, site not specified (principal); Z88.8 Allergy status to other drugs, medicaments and biological substances; Z79.899 Other long term (current) drug therapy; Z90.711 Acquired absence of uterus with remaining cervical stump; Z98.890 Other specified postprocedural states

== ENCOUNTER 2020-10-27 15:03 | Emergency (ER) | payer OTHER ==
[~2020-10-27] VITALS: Ht 149.9 cm; Wt 49.9 kg
[2020-10-27 15:39] LABS: BILIRUBIN 1+ (Negative); BLOOD 1+ (Negative); CLARITY Cloudy (Clear); COLOR Orange (Yellow); GLUCOSE Negative (Negative); KETONE Negative (Negative); LEUKO ESTERASE 3+ (Negative); NITRITE Positive (Negative)
[2020-10-27 15:51] LABS: BACTERIA 2+; RBC 0-2 rbc/hpf (0-2); WBC 51-100 wbc/hpf (0-5)
[2020-10-27 15:52] LABS: EPITHELIAL CELLS 16-20; FINE GRANULAR CAST 0-2
[2020-10-27 16:37] LABS: BASO # 0.1 10*3/uL (0.0-0.1); BASO % 0.5 % (0.0-1.0); EOS # 0.1 10*3/uL (0.0-0.4); EOS % 0.8 % (1.0-4.0); HEMATOCRIT 40.5 % (37.0-47.0); LYMPH # 1.9 10*3/uL (1.3-4.4); LYMPH % 14.2 % (27.0-41.0); MEAN CELL VOLUME 97.4 fl (81.0-99.0); MEAN CORPUSCULAR HGB 32.2 pg (27.0-31.0); MEAN CORPUSCULAR HGB CONC 33.1 g/dl (33.0-37.0); MEAN PLATELET VOLUME 8.3 fl (9.6-12.3); MONO # 0.5 10*3/uL (0.1-1.0); MONO % 3.9 % (3.0-9.0); NEUT # 10.6 10*3/uL (2.3-7.9); NEUT % 80.2 % (47.0-73.0); PLATELET COUNT AUTOMATED 502 10*3/uL (130-400); RED BLOOD COUNT 4.16 10*6/uL (4.10-5.10); RED CELL DISTRI WIDTH 12.5 % (0-14.5); WHITE BLOOD COUNT 13.2 10*3/uL (4.8-10.8)
[2020-10-27 16:53] LABS: ALBUMIN 3.8 gm/dl (3.1-4.5); ALKALINE PHOSPHATASE 92 U/L (45-117); BUN 6 mg/dl (7-24); CHLORIDE 104 mmol/L (98-107); CREATININE 0.62 mg/dL (0.55-1.02); POTASSIUM 3.2 mmol/L (3.5-5.1); SGOT/AST 9 IU/L (3-35); SGPT/ALT 13 U/L (12-78); SODIUM 139 mmol/L (136-145); TOTAL PROTEIN 6.9 gm/dL (6.4-8.2)
[2020-10-27] MEDS ORDERED: SEPTDS PO (18:12)
[2020-10-27] MEDS ORDERED: PYRIDIUM200 M1 PO (18:12)
== END 2020-10-27 18:16 | disposition home or self-care (01) ==
LOC: ED 15:03
PROVIDERS: Physician Assistant
DX: N39.0 Urinary tract infection, site not specified (principal); F17.200 Nicotine dependence, unspecified, uncomplicated; Z88.8 Allergy status to other drugs, medicaments and biological substances; Z79.899 Other long term (current) drug therapy; Z98.890 Other specified postprocedural states; Z90.711 Acquired absence of uterus with remaining cervical stump

== ENCOUNTER 2021-01-05 19:30 | Emergency (ER) | payer OTHER ==
[~2021-01-05] VITALS: Ht 149.8 cm; Wt 45.4 kg
[2021-01-05] MEDS ORDERED: DOXYCYCLINE100 M3 PO (21:55)
[2021-01-05] MEDS ORDERED: FLAGYL500 MG PO (21:55)
== END 2021-01-05 22:00 | disposition home or self-care (01) ==
LOC: ED 19:30
DX: S81.852A Open bite, left lower leg, initial encounter (principal); F17.200 Nicotine dependence, unspecified, uncomplicated; Z98.890 Other specified postprocedural states; Z88.1 Allergy status to other antibiotic agents; Z88.6 Allergy status to analgesic agent; W54.0XXA Bitten by dog, initial encounter; Y93.89 Activity, other specified; Y92.89 Other specified places as the place of occurrence of the external cause; Y99.9 Unspecified external cause status

== ENCOUNTER 2021-01-13 16:07 | Emergency (ER) | payer OTHER ==
[~2021-01-13] VITALS: Ht 149.8 cm; Wt 45.4 kg
[~2021-01-13 16:07] MED LIST changes: +DOXYCYCLINE100 M3 PO
[2021-01-13] MEDS ORDERED: PROVENTIL HFA6.7 GM INH (18:07)
[2021-01-13] MEDS ORDERED: PREDNISONE20 M1 PO (18:07)
[2021-01-13] MEDS ORDERED: ZITHROMAX500 MG PO (18:07)
[2021-01-13] MEDS ORDERED: TESSALON PERLE100 M1 PO (18:11)
== END 2021-01-13 18:13 | disposition home or self-care (01) ==
LOC: ED 16:07
DX: R05 Cough (principal); Z20.822 Contact with and (suspected) exposure to COVID-19; R06.02 Shortness of breath; F17.200 Nicotine dependence, unspecified, uncomplicated; Z88.1 Allergy status to other antibiotic agents; Z88.6 Allergy status to analgesic agent; Z79.2 Long term (current) use of antibiotics; Z79.899 Other long term (current) drug therapy; Z90.711 Acquired absence of uterus with remaining cervical stump; Z98.890 Other specified postprocedural states

== ENCOUNTER 2021-01-24 14:53 | Emergency (ER) | payer OTHER ==
[~2021-01-24] VITALS: Ht 149.8 cm; Wt 45.4 kg
[~2021-01-24 14:53] MED LIST changes: +PROVENTIL HFA6.7 GM INH; +ZITHROMAX500 MG PO
[2021-01-24 16:13] LABS: BASO % 0.3 % (0.0-1.0); EOS # 0.3 10*3/uL (0.0-0.4); EOS % 2.7 % (1.0-4.0); HEMATOCRIT 43.8 % (37.0-47.0); LYMPH # 2.9 10*3/uL (1.3-4.4); LYMPH % 24.6 % (27.0-41.0); MEAN CELL VOLUME 94.2 fl (81.0-99.0); MEAN CORPUSCULAR HGB 30.5 pg (27.0-31.0); MEAN CORPUSCULAR HGB CONC 32.4 g/dl (33.0-37.0); MONO # 0.5 10*3/uL (0.1-1.0); MONO % 4.1 % (3.0-9.0); NEUT # 7.8 10*3/uL (2.3-7.9); NEUT % 66.9 % (47.0-73.0); PLATELET COUNT AUTOMATED 530 10*3/uL (130-400); RED BLOOD COUNT 4.65 10*6/uL (4.10-5.10); RED CELL DISTRI WIDTH 13.2 % (0-14.5); WHITE BLOOD COUNT 11.6 10*3/uL (4.8-10.8)
[2021-01-24 16:31] LABS: ALBUMIN 3.3 gm/dl (3.1-4.5); ALKALINE PHOSPHATASE 126 U/L (45-117); BUN 11 mg/dl (7-24); CHLORIDE 102 mmol/L (98-107); CREATININE 0.58 mg/dL (0.55-1.02); POTASSIUM 3.4 mmol/L (3.5-5.1); SGOT/AST 15 IU/L (3-35); SGPT/ALT 27 U/L (12-78); SODIUM 135 mmol/L (136-145); TOTAL PROTEIN 7.6 gm/dL (6.4-8.2)
[2021-01-24] MEDS ORDERED: LEVOFLOXACIN750 M2 PO (17:01)
[2021-01-24] MEDS ORDERED: PREDNISONE20 M1 PO (17:01)
== END 2021-01-24 17:12 | disposition home or self-care (01) ==
LOC: ED 14:53
PROVIDERS: Physician Assistant
DX: J40 Bronchitis, not specified as acute or chronic (principal); F17.200 Nicotine dependence, unspecified, uncomplicated; Z88.1 Allergy status to other antibiotic agents; Z88.6 Allergy status to analgesic agent; Z79.2 Long term (current) use of antibiotics; Z79.899 Other long term (current) drug therapy; Z90.711 Acquired absence of uterus with remaining cervical stump; Z98.890 Other specified postprocedural states

== ENCOUNTER 2021-04-12 12:38 | Emergency (ER) | payer OTHER ==
[~2021-04-12] VITALS: Ht 149.8 cm; Wt 45.4 kg
[~2021-04-12 12:38] MED LIST changes: +LEVOFLOXACIN750 M2 PO
== END 2021-04-12 15:05 | disposition left against medical advice (07) ==
LOC: ED 12:38
DX: R10.31 Right lower quadrant pain (principal); R11.2 Nausea with vomiting, unspecified; R30.9 Painful micturition, unspecified; Z53.21 Procedure and treatment not carried out due to patient leaving prior to being seen by health care provider

== ENCOUNTER 2022-05-01 20:18 | Emergency (ER) | payer OTHER ==
[~2022-05-01] VITALS: Ht 149.8 cm; Wt 45.4 kg
[2022-05-01] MEDS ORDERED: HYDROXYZINE HCL25 MG PO (20:56)
[2022-05-01] MEDS ORDERED: ONDANSETRON4 MG SL (20:56)
== END 2022-05-01 22:00 | disposition home or self-care (01) ==
LOC: ED 20:18
DX: F11.23 Opioid dependence with withdrawal (principal)

== ENCOUNTER 2022-06-01 10:55 | Emergency (ER) | payer OTHER ==
[~2022-06-01] VITALS: Ht 149.8 cm; Wt 45.4 kg
[~2022-06-01 10:55] MED LIST changes: +HYDROXYZINE HCL25 MG PO; +ONDANSETRON4 MG SL
[2022-06-01 13:04] LABS: BASO # 0.1 10*3/uL (0.0-0.1); BASO % 0.7 % (0.0-1.0); EOS # 0.1 10*3/uL (0.0-0.4); EOS % 0.8 % (1.0-4.0); HEMATOCRIT 45.8 % (37.0-47.0); LYMPH # 3.1 10*3/uL (1.3-4.4); LYMPH % 29.5 % (27.0-41.0); MEAN CORPUSCULAR HGB 30.3 pg (27.0-31.0); MEAN CORPUSCULAR HGB CONC 33.6 g/dl (33.0-37.0); MONO # 0.6 10*3/uL (0.1-1.0); MONO % 5.9 % (3.0-9.0); NEUT # 6.5 10*3/uL (2.3-7.9); NEUT % 62.7 % (47.0-73.0); PLATELET COUNT AUTOMATED 500 10*3/uL (130-400); RED BLOOD COUNT 5.09 10*6/uL (4.10-5.10); RED CELL DISTRI WIDTH 12.5 % (0-14.5); WHITE BLOOD COUNT 10.4 10*3/uL (4.8-10.8)
[2022-06-01 13:09] LABS: BILIRUBIN Negative (Negative); BLOOD Negative (Negative); CLARITY Clear (Clear); COLOR Yellow (Yellow); GLUCOSE Negative (Negative); KETONE Trace (Negative); LEUKO ESTERASE Negative (Negative); NITRITE Negative (Negative); PH 6.5 (4.5-8.0); SPECIFIC GRAVITY 1.025 (1.001-1.030)
[2022-06-01 13:19] LABS: ALKALINE PHOSPHATASE 107 U/L (45-117); BUN 10 mg/dl (7-24); CHLORIDE 102 mmol/L (98-107); LIPASE 71 U/L (73-393); SGPT/ALT 18 U/L (12-78); SODIUM 140 mmol/L (136-145); TOTAL PROTEIN 7.9 gm/dL (6.4-8.2)
[2022-06-01 13:23] LABS: BACTERIA 3+; MUCOUS 3+
[2022-06-01] MEDS ORDERED: PROVENTIL HFA6.7 GM INH (14:49)
[2022-06-01] MEDS ORDERED: PREDNISONE20 M1 PO (14:49)
[2022-06-01] MEDS ORDERED: ZITHROMAX250 MG PO (14:49)
== END 2022-06-01 14:59 | disposition home or self-care (01) ==
LOC: ED 10:55
PROVIDERS: Physician Assistant
DX: J40 Bronchitis, not specified as acute or chronic (principal); Z20.822 Contact with and (suspected) exposure to COVID-19; R30.0 Dysuria; Z88.1 Allergy status to other antibiotic agents; Z88.8 Allergy status to other drugs, medicaments and biological substances; Z90.710 Acquired absence of both cervix and uterus; Z98.890 Other specified postprocedural states; Z87.891 Personal history of nicotine dependence

== ENCOUNTER 2022-08-22 11:35 | Inpatient (IN) | payer OTHER ==
[~2022-08-22] VITALS: Ht 149.9 cm; Wt 47.2 kg
[2022-08-22 11:54] VITALS: BP 119/81
[2022-08-22 12:12] LABS: BILIRUBIN 1+ (Negative); BLOOD Negative (Negative); CLARITY Cloudy (Clear); COLOR Dark Yellow (Yellow); GLUCOSE Negative (Negative); KETONE Trace (Negative); LEUKO ESTERASE Trace (Negative); NITRITE Negative (Negative); SPECIFIC GRAVITY >= 1.030 (1.001-1.030)
[2022-08-22 12:27] LABS: BASO # 0.1 10*3/uL (0.0-0.1); EOS # 0.1 10*3/uL (0.0-0.4); HEMATOCRIT 43.2 % (37.0-47.0); LYMPH # 2.8 10*3/uL (1.3-4.4); LYMPH % 30.4 % (27.0-41.0); MEAN CELL VOLUME 91.3 fl (81.0-99.0); MEAN CORPUSCULAR HGB 30.4 pg (27.0-31.0); MEAN CORPUSCULAR HGB CONC 33.3 g/dl (33.0-37.0); MEAN PLATELET VOLUME 8.1 fl (9.6-12.3); MONO # 0.4 10*3/uL (0.1-1.0); MONO % 4.6 % (3.0-9.0); NEUT # 5.8 10*3/uL (2.3-7.9); NEUT % 62.6 % (47.0-73.0); PLATELET COUNT AUTOMATED 543 10*3/uL (130-400); RED BLOOD COUNT 4.73 10*6/uL (4.10-5.10); RED CELL DISTRI WIDTH 13.7 % (0-14.5); WHITE BLOOD COUNT 9.3 10*3/uL (4.8-10.8)
[2022-08-22 12:35] LABS: BACTERIA 2+; CALCIUM OXALATE CRYSTALS 3+; EPITHELIAL CELLS TNTC; MUCOUS 2+
[2022-08-22 12:37] LABS: URINE AMPHETAMINES Positive (1000ng/ml); URINE BARBITURATES Negative (200ng/ml); URINE BENZODIAZEPINES Negative (200ng/ml); URINE CANNABINOIDS (THC) Negative (50ng/ml); URINE COCAINE Negative (300ng/ml); URINE METHADONE Negative (300ng/ml); URINE OPIATES Negative (300ng/ml); URINE PHENCYCLIDINE Negative (25ng/ml)
[2022-08-22 12:39] LABS: ACT PARTIAL THROMBO TIME 28.8 SECONDS (20.0-32.1); INTERNATIONAL NORM RATIO 1.1 (2.0-3.5)
[2022-08-22 12:45] LABS: ALKALINE PHOSPHATASE 90 U/L (46-116); BETA-HCG, QUANT < 3.0 mIU/mL (0-10); BUN 9 mg/dl (9-23); CHLORIDE 102 mmol/L (98-107); POTASSIUM 3.2 mmol/L (3.4-5.1); SGPT/ALT 14 U/L (10-49)
[2022-08-22 16:30] VITALS: BP 117/77
[2022-08-22 20:00] VITALS: BP 99/65
[2022-08-23] VITALS: BP 112/86
[2022-08-23 08:00] VITALS: BP 100/62
[2022-08-23 12:00] VITALS: BP 96/65
[2022-08-23 16:00] VITALS: BP 101/60
[2022-08-23 20:00] VITALS: BP 103/65
[2022-08-24] VITALS: BP 117/77
[2022-08-24 08:00] VITALS: BP 106/68
[2022-08-24 12:00] VITALS: BP 112/61
[2022-08-24 16:00] VITALS: BP 107/65
[2022-08-24 20:00] VITALS: BP 108/67
[2022-08-25] VITALS: BP 101/64
[2022-08-25 06:17] LABS: BASO # 0.1 10*3/uL (0.0-0.1); EOS # 0.2 10*3/uL (0.0-0.4); EOS % 2.7 % (1.0-4.0); HEMATOCRIT 38.4 % (37.0-47.0); LYMPH # 3.7 10*3/uL (1.3-4.4); LYMPH % 43.2 % (27.0-41.0); MEAN CELL VOLUME 93.4 fl (81.0-99.0); MEAN CORPUSCULAR HGB 30.2 pg (27.0-31.0); MEAN CORPUSCULAR HGB CONC 32.3 g/dl (33.0-37.0); MEAN PLATELET VOLUME 8.5 fl (9.6-12.3); MONO # 0.6 10*3/uL (0.1-1.0); MONO % 6.8 % (3.0-9.0); PLATELET COUNT AUTOMATED 426 10*3/uL (130-400); RED BLOOD COUNT 4.11 10*6/uL (4.10-5.10); RED CELL DISTRI WIDTH 13.5 % (0-14.5); WHITE BLOOD COUNT 8.6 10*3/uL (4.8-10.8)
[2022-08-25 08:00] VITALS: BP 113/74
[2022-08-25 12:00] VITALS: BP 110/68
[2022-08-25] MEDS ORDERED: ROPINIROLE HYD0.5 MG PO (14:42)
[2022-08-25] MEDS ORDERED: ATARAX,VISTARIL50 MG PO (14:42)
[2022-08-25] MEDS ORDERED: METHOCARBAMOL750 M1 PO (14:42)
== END 2022-08-25 15:40 | disposition home or self-care (01) | DRG 773 ==
LOC: ED 11:35 → 4E 12:58 → EDHOLD 12:58 → 4E 14:45
PROVIDERS: Emergency Medicine; ADMIT Internal Medicine; ATTEND Internal Medicine
DX: F11.23 Opioid dependence with withdrawal (principal); D75.839 Thrombocytosis, unspecified; E87.6 Hypokalemia; R73.9 Hyperglycemia, unspecified; F17.210 Nicotine dependence, cigarettes, uncomplicated; K58.9 Irritable bowel syndrome, unspecified; Z88.1 Allergy status to other antibiotic agents; Z88.8 Allergy status to other drugs, medicaments and biological substances; Z79.899 Other long term (current) drug therapy; Z90.710 Acquired absence of both cervix and uterus; Z98.891 History of uterine scar from previous surgery

== ENCOUNTER 2022-11-22 08:53 | Emergency (ER) | payer OTHER ==
[~2022-11-22] VITALS: Wt 50.2 kg
[~2022-11-22 08:53] MED LIST changes: +ATARAX,VISTARIL50 MG PO; +METHOCARBAMOL750 M1 PO; +ROPINIROLE HYD0.5 MG PO
[2022-11-22 09:50] LABS: BASO % 0.2 % (0.0-1.0); EOS % 0.1 % (1.0-4.0); HEMATOCRIT 47.8 % (37.0-47.0); LYMPH # 1.4 10*3/uL (1.3-4.4); LYMPH % 8.9 % (27.0-41.0); MEAN CELL VOLUME 88.5 fl (81.0-99.0); MEAN CORPUSCULAR HGB 29.6 pg (27.0-31.0); MEAN CORPUSCULAR HGB CONC 33.5 g/dl (33.0-37.0); MONO # 0.4 10*3/uL (0.1-1.0); MONO % 2.7 % (3.0-9.0); NEUT # 13.8 10*3/uL (2.3-7.9); NEUT % 87.7 % (47.0-73.0); PLATELET COUNT AUTOMATED 571 10*3/uL (130-400); RED CELL DISTRI WIDTH 13.2 % (0-14.5); WHITE BLOOD COUNT 15.7 10*3/uL (4.8-10.8)
[2022-11-22 10:14] LABS: ALKALINE PHOSPHATASE 110 U/L (46-116); BUN 13 mg/dl (9-23); CHLORIDE 95 mmol/L (98-107); POTASSIUM 3.4 mmol/L (3.4-5.1); SGPT/ALT 37 U/L (10-49); TOTAL PROTEIN 8.4 gm/dL (6.0-8.0)
[2022-11-22 10:55] LABS: BILIRUBIN Negative (Negative); BLOOD Trace-Lysed (Negative); CLARITY Cloudy (Clear); COLOR Yellow (Yellow); GLUCOSE Negative (Negative); KETONE 4+ (Negative); LEUKO ESTERASE Negative (Negative); NITRITE Negative (Negative); SPECIFIC GRAVITY >= 1.030 (1.001-1.030)
[2022-11-22 11:03] LABS: URINE AMPHETAMINES Positive (1000ng/ml); URINE BARBITURATES Negative (200ng/ml); URINE BENZODIAZEPINES Positive (200ng/ml); URINE CANNABINOIDS (THC) Negative (50ng/ml); URINE COCAINE Negative (300ng/ml); URINE METHADONE Negative (300ng/ml); URINE OPIATES Negative (300ng/ml); URINE PHENCYCLIDINE Negative (25ng/ml)
[2022-11-22 11:05] LABS: BACTERIA 1+; EPITHELIAL CELLS TNTC; RBC 0-2 rbc/hpf (0-2)
== END 2022-11-22 12:09 | disposition home or self-care (01) ==
LOC: ED 08:53
PROVIDERS: Emergency Medicine
DX: F19.90 Other psychoactive substance use, unspecified, uncomplicated (principal); F41.9 Anxiety disorder, unspecified; Z88.1 Allergy status to other antibiotic agents; Z88.8 Allergy status to other drugs, medicaments and biological substances; Z90.710 Acquired absence of both cervix and uterus; Z98.890 Other specified postprocedural states; F17.200 Nicotine dependence, unspecified, uncomplicated; Z79.899 Other long term (current) drug therapy

== ENCOUNTER 2024-02-25 15:06 | Emergency (ER) | payer OTHER ==
[~2024-02-25] VITALS: Ht 149.8 cm; Wt 45.4 kg
[2024-02-25] MEDS ORDERED: Motrin,Rufen800 MG PO (15:52)
[2024-02-25] MEDS ORDERED: CLINDAMYCIN HC300 MG PO (15:52)
[2024-02-25] MEDS ORDERED: CLINDAMYCIN HCL 300 MG CAPSULE PO ONE (15:55)
[2024-02-25] MEDS ORDERED: Ondansetron4 MG PO (15:55)
[2024-02-25] MEDS ORDERED: Acetaminophen/Oxycodone 5 MG/325 MG TABLET PO ONE (15:55)
[2024-02-25] MEDS ORDERED: Ondansetron Hydrochloride 4 MG TAB SL ONE (15:55)
== END 2024-02-25 16:21 | disposition home or self-care (01) ==
LOC: ED 15:06
DX: K04.7 Periapical abscess without sinus (principal); F17.210 Nicotine dependence, cigarettes, uncomplicated; Z88.1 Allergy status to other antibiotic agents; Z88.6 Allergy status to analgesic agent; Z90.710 Acquired absence of both cervix and uterus; Z98.890 Other specified postprocedural states

== ENCOUNTER 2025-03-28 16:27 | Emergency (ER) | payer OTHER ==
[~2025-03-28] VITALS: Ht 149.8 cm
[~2025-03-28 16:27] MED LIST changes: +Ondansetron4 MG PO; +Ondansetron4 MG SL
[2025-03-28] MEDS ORDERED: BENZOCAINE 20% 11.9 GM GEL T STA (19:23)
[2025-03-28] MEDS ORDERED: Acetaminophen/Hydrocodone Bi 3 TAB PACK PO PRN (19:25)
[2025-03-28] MEDS ORDERED: Acetaminophen/Hydrocodone 5 MG/325 MG TABLET PO ONE (19:25)
[2025-03-28] MEDS ORDERED: VIBRAMYCIN100 MG PO (19:27)
== END 2025-03-28 20:05 | disposition home or self-care (01) ==
LOC: ED 16:27
DX: K02.9 Dental caries, unspecified (principal); F17.210 Nicotine dependence, cigarettes, uncomplicated; Z88.1 Allergy status to other antibiotic agents; Z90.710 Acquired absence of both cervix and uterus; Z98.890 Other specified postprocedural states